=== PATIENT | female | born 1940 | race African-American/Black ===

== ENCOUNTER 2019-08-03 10:53 | Emergency (ER) | payer OTHER ==
[~2019-08-03] VITALS: Ht 170.2 cm; Wt 77.1 kg
[2019-08-03] MEDS ORDERED: SODIUM CHLORIDE 0.9% 500 ML IV ONE (11:35)
[2019-08-03 11:59] LABS: Basophils # (auto) 0 uL; Basophils % (auto) 0.2 % (0.0-2.0); Eosinophils # (auto) 0 uL; Eosinophils % (auto) 0.2 % (0.0-7.0); Hematocrit 43.3 % (36.0-46.0); Hemoglobin 13.6 g/dL (12.2-16.2); Lymphocytes # (auto) 1.1 uL; Lymphocytes % (auto) 5.7 % (10.0-50.0); Mean Corpuscular Hemoglobin 30.2 pg (28.0-32.0); Mean Corpuscular Hgb Conc. 31.5 g/dL (32.0-36.0); Monocytes # (auto) 0.5 uL; Monocytes % (auto) 2.6 % (0.0-12.0); Neutrophils # (auto) 17.1 uL; Neutrophils % (auto) 91.3 % (37.0-80.0); Platelet Count (auto) 295 10^3/uL (140-450); Red Blood Cells 4.51 10^6/uL (4.0-5.20); Red Cell Distribution Width 15.3 % (11.8-14.3); White Blood Cell 18.7 10^3/uL (4.4-10.8)
[2019-08-03 12:14] LABS: Albumin 3.4 g/dL (3.4-5.0); Anion Gap 9 (5-15); BUN/Creatinine Ratio 12.7; Blood Urea Nitrogen 15 mg/dL (7-18); Calcium 9.7 mg/dL (8.5-10.1); Carbon Dioxide 20 mmol/L (21-32); Chloride 113 mmol/L (98-107); GFR African American 57 mL/min; GFR Non-African American 47 mL/min; Glucose 108 mg/dL (74-106); Magnesium 1.8 mg/dL (1.6-2.6); Potassium 3.6 mmol/L (3.5-5.1); Sodium 142 mmol/L (136-145)
[2019-08-03 12:17] LABS: Alanine Aminotransferase 27 U/L (13-56); Alkaline Phosphatase 84 U/L (45-117); Aspartate Aminotransferase 36 U/L (15-37); Bilirubin, Total 0.7 mg/dL (0.2-1.0); Total Protein 7.6 g/dL (6.4-8.2)
[2019-08-03 13:39] LABS: Urine WBC None Seen /hpf (0 - 5)
[2019-08-03 13:58] LABS: Urine Bacteria NONE SEEN /hpf (None Seen); Urine Blood Negative /uL (Negative); Urine Mucus FEW (None Seen); Urine Specific Gravity 1.015 (1.001-1.035)
[2019-08-03 14:40] VITALS: BP 138/64
[2019-08-03] MEDS ORDERED: ACETAMINOPHEN 325 MG TAB PO ONE (14:45)
== END 2019-08-03 15:08 | disposition home or self-care (01) ==
LOC: EDBD 10:53 → ER 10:53
DX: B34.9 Viral infection, unspecified (principal); R55 Syncope and collapse; E78.5 Hyperlipidemia, unspecified; I10 Essential (primary) hypertension
CPT/HCPCS: 36415; 70450; 71046; 80053; 81001; 83735; 84484; 85025; 93005

== ENCOUNTER 2022-09-03 09:57 | Emergency (ER) | payer OTHER ==
[~2022-09-03] VITALS: Ht 165.1 cm; Wt 67.5 kg
[2022-09-03] MEDS ORDERED: cloNIDine HCL 0.1 MG TAB PO ONE (10:30)
[2022-09-03 11:09] LABS: Basophils # (auto) 0 10 ^3/uL (0-0.2); Basophils % (auto) 0.4 % (0.0-2.0); Eosinophils # (auto) 0.1 10 ^3/uL (0-0.8); Eosinophils % (auto) 1.3 % (0.0-7.0); Hematocrit 39.4 % (36.0-46.0); Hemoglobin 13.3 g/dL (12.2-16.2); Lymphocytes # (auto) 1.7 10 ^3/uL (0.4-5.4); Lymphocytes % (auto) 18.5 % (10.0-50.0); Mean Corpuscular Hemoglobin 30.5 pg (28.0-32.0); Mean Corpuscular Hgb Conc. 33.8 g/dL (32.0-36.0); Mean Corpuscular Volume 90.1 fL (80.0-100.0); Monocytes # (auto) 0.5 10 ^3/uL (0-1.3); Monocytes % (auto) 5.5 % (0.0-12.0); Neutrophils # (auto) 6.6 10 ^3/uL (1.6-8.6); Neutrophils % (auto) 74.3 % (37.0-80.0); Nucleated Red Blood Cells % 0.1 %; Red Blood Cells 4.37 10^6/uL (4.0-5.20); White Blood Cell 8.9 10^3/uL (4.4-10.8)
[2022-09-03 11:54] LABS: Potassium 3.9 mmol/L (3.5-5.1)
[2022-09-03 11:56] LABS: Calcium 10.3 mg/dL (8.5-10.1)
[2022-09-03 11:58] LABS: Albumin 3.8 g/dL (3.4-5.0); Total Protein 7.7 g/dL (6.4-8.2)
[2022-09-03 11:59] LABS: Bilirubin, Total 0.4 mg/dL (0.2-1.0); Magnesium 2.2 mg/dL (1.6-2.6)
[2022-09-03 13:03] VITALS: BP 136/72
[2022-09-03] MEDS ORDERED: METO-159 PO (14:39)
== END 2022-09-03 13:05 | disposition home or self-care (01) ==
LOC: ER 09:57
DX: I16.0 Hypertensive urgency (principal); E78.5 Hyperlipidemia, unspecified; Z90.49 Acquired absence of other specified parts of digestive tract; Z90.710 Acquired absence of both cervix and uterus
CPT/HCPCS: 36415; 70450; 71046; 80053; 83735; 84484; 85025; 93005